=== PATIENT | female | born 1970 ===

== ENCOUNTER 2018-01-20 08:08 | Outpatient (CLI) | payer OTHER | END 2018-01-20 08:15 | disposition home or self-care (01) | LOC: LAB 08:08 | DX: I10 Essential (primary) hypertension (principal); E11.9 Type 2 diabetes mellitus without complications; E03.8 Other specified hypothyroidism; E78.2 Mixed hyperlipidemia; M81.0 Age-related osteoporosis without current pathological fracture ==

== ENCOUNTER 2019-02-01 12:55 | Outpatient (CLI) | payer OTHER | END 2019-02-01 14:40 | disposition home or self-care (01) | LOC: MAMO-SONO 12:55 | DX: Z12.31 Encounter for screening mammogram for malignant neoplasm of breast (principal); Z87.898 Personal history of other specified conditions; N60.11 Diffuse cystic mastopathy of right breast; N60.12 Diffuse cystic mastopathy of left breast ==

== ENCOUNTER 2021-01-11 15:04 | Emergency (ER) | payer OTHER ==
[~2021-01-11] VITALS: Ht 152.4 cm; Wt 56.7 kg
[2021-01-11] MEDS ORDERED: ALEVE220 MG PO (15:41)
[2021-01-11] MEDS ORDERED: 8HR ARTHRITIS650 MG PO (15:41)
[2021-01-11] MEDS ORDERED: VITAMIN C1000 MG PO (15:41)
[2021-01-11] MEDS ORDERED: VITAMIN D350 MCG PO (15:41)
== END 2021-01-11 17:48 | disposition home or self-care (01) ==
LOC: ER 15:04
DX: S93.124A Dislocation of metatarsophalangeal joint of right lesser toe(s), initial encounter (principal); S92.331A Displaced fracture of third metatarsal bone, right foot, initial encounter for closed fracture; S92.341A Displaced fracture of fourth metatarsal bone, right foot, initial encounter for closed fracture; W22.09XA Striking against other stationary object, initial encounter; Y93.89 Activity, other specified; Y92.89 Other specified places as the place of occurrence of the external cause; Y99.8 Other external cause status

== ENCOUNTER → 2021-02-12 | Outpatient (CLI) | payer OTHER ==
[~2021-02-12] MED LIST: 8HR ARTHRITIS650 MG PO; ALEVE220 MG PO; VITAMIN C1000 MG PO; VITAMIN D350 MCG PO
== END | disposition home or self-care (01) ==
LOC: RAD 14:00
PROVIDERS: ATTEND Orthopaedic Surgery
DX: M79.671 Pain in right foot (principal)

== ENCOUNTER 2022-07-03 09:58 | Outpatient (CLI) | payer OTHER | END 2022-07-03 15:20 | disposition home or self-care (01) | LOC: MAMO-SONO 09:58 | PROVIDERS: ATTEND Obstetrics & Gynecology | DX: Z12.31 Encounter for screening mammogram for malignant neoplasm of breast (principal); N60.11 Diffuse cystic mastopathy of right breast; N60.12 Diffuse cystic mastopathy of left breast ==

== ENCOUNTER 2023-04-02 15:23 | Outpatient (CLI) | payer OTHER | END 2023-04-02 15:27 | disposition home or self-care (01) | LOC: RAD 15:23 | DX: M25.561 Pain in right knee (principal) ==

== ENCOUNTER 2023-07-09 08:37 | Outpatient (CLI) | payer OTHER | END 2023-07-09 08:48 | disposition home or self-care (01) | LOC: MAMO-SONO 08:37 | PROVIDERS: ATTEND Student in an Organized Health Care Education/Training Program | DX: N60.11 Diffuse cystic mastopathy of right breast (principal); N60.12 Diffuse cystic mastopathy of left breast; Z12.31 Encounter for screening mammogram for malignant neoplasm of breast ==

== ENCOUNTER 2024-10-17 09:05 | Outpatient (CLI) | payer OTHER | END 2024-10-17 09:17 | disposition home or self-care (01) | LOC: MAMO-SONO 09:05 | PROVIDERS: ATTEND Obstetrics & Gynecology | DX: N60.11 Diffuse cystic mastopathy of right breast (principal); N60.12 Diffuse cystic mastopathy of left breast; Z12.31 Encounter for screening mammogram for malignant neoplasm of breast ==

== ENCOUNTER 2024-10-26 09:07 | Outpatient (CLI) | payer OTHER | END 2024-10-26 14:01 | disposition home or self-care (01) | LOC: SONOGRAMA 09:07 | PROVIDERS: ATTEND Obstetrics & Gynecology | DX: R10.2 Pelvic and perineal pain (principal) ==

== ENCOUNTER 2025-04-13 08:46 | Outpatient (CLI) | payer OTHER | END 2025-04-13 08:49 | disposition home or self-care (01) | LOC: SONOGRAMA 08:46 | PROVIDERS: ATTEND Obstetrics & Gynecology | DX: R10.2 Pelvic and perineal pain (principal) ==

== ENCOUNTER 2025-06-20 15:09 | Outpatient (CLI) | payer OTHER | END 2025-06-20 15:21 | disposition home or self-care (01) | LOC: RAD 15:09 | DX: M62.838 Other muscle spasm (principal) ==